=== PATIENT | female | born 1995 | race Caucasian/White ===

== ENCOUNTER → 2020-01-11 | Outpatient (CLI) | payer BC ==
--- NOTE | 2020-01-11 10:27 | KCIC ---
Study: MRI left ankle without contrast INDICATION: Ongoing ankle pain after an injury in July 2019. COMPARISON: Left ankle radiographs 09/02/2019 TECHNIQUE: Multiplanar MR imaging of the left ankle performed without the use of intravenous or intra-articular contrast. FINDINGS: Bones/cartilage: Patchy edema-like signal seen within the distal tibia diametaphysis, medial and lateral malleoli and involving portions of the talus. There may be a tiny fracture fragment off the anterior tibial plafond (image 16 series 6) but this is not well delineated on any additional sequences. No osteochondral defect at the ankle. Ligaments: The distal syndesmotic ligaments are intact. The ATFL is thickened in keeping with prior sprain. The mid aspect of the CFL is slightly wavy in configuration, image 15 series 8, but both its fibular and calcaneal insertions remain visualized. Thickened and heterogeneous PTFL with maintained visualization of intact fibers. The superior peroneal retinaculum is lifted and displaced laterally and appears attached to stripped periosteum from the lateral malleolus creating a pouch containing dislocated peroneal tendons, image 18 series 5. The inferior peroneal retinaculum is intact. Fluid signal undercutting the medial malleolar origin of the deep deltoid ligament, image 17 series 8, compatible with a partial tear. Potential mild superficial deltoid sprain with thickening of the tibiocalcaneal component near the sustentaculum. There is abnormal soft tissue prominence at and above the medial malleolus suggesting injury to the flexor retinaculum but there is no flexor tendon dislocation. The spring ligament is intact. Unremarkable Lisfranc ligament complex. Musculotendinous: As above, anterolateral dislocation of the peroneus longus and brevis. No high-grade peroneal tendon tear but there is a degree of tendinosis particularly involving the peroneus brevis. The PTT, FDL and FHL are intact. Small amount of PTT tendon sheath fluid. The Achilles is intact. The extensor tendons are intact. Sinus Tarsi: Unremarkable. Tarsal tunnel: No mass effect on the neurovascular bundle. Plantar fascia: Unremarkable. Miscellaneous: Localized joint fluid at the anterior aspect of ankle joint with thickened and redundant synovium at this location, such as seen on image 12 series 4. Small amount of fluid as well as edema-like signal at the posterior aspect of ankle joint mainly centered along the PTFL. IMPRESSION: 1. Injury to the superior peroneal retinaculum, favored type 1, with the retinaculum appearing intact but detached from the lateral malleolus with stripped and elevated periosteum. This creates a pouch allowing for anterolateral dislocation of the peroneus brevis and longus tendons. The peroneal tendons are intact and are visualized to their insertions. The inferior peroneal retinaculum is intact. 2. Abnormal soft tissue thickening at and above the medial malleolus suggesting flexor retinaculum injury but without flexor tendon dislocation or complete retinacular disruption. 3. Sequela of prior injury to the ATFL, CFL and PTFL but without full-thickness ligament disruption. Partial tear at the medial malleolar attachment of the deep deltoid ligament (image 17 series 8). 4. Localized fluid at the anterior ankle joint with intermixed redundant and thickened synovium which can be seen with anterior ankle impingement. Also noted is a possible tiny fracture fragment off the anterior tibial plafond (image 16 series 6) but only seen on one sequence. Consider follow-up radiographs to better evaluate. 5. Patchy marrow edema at the distal tibia, medial and lateral malleoli and talus could be from disuse, related to prior injury or in part from ankle instability. Electronically signed by: MORAIMA SMITH MD (01/11/2020 10:24 AM) [id number]
== END | disposition home or self-care (01) ==
LOC: KCIC MRI 07:58
PROVIDERS: ATTEND Orthopaedic Surgery Sports Medicine
DX: S93.402A Sprain of unspecified ligament of left ankle, initial encounter (principal); X58.XXXA Exposure to other specified factors, initial encounter; Y93.89 Activity, other specified; Y92.89 Other specified places as the place of occurrence of the external cause; Y99.8 Other external cause status
CPT/HCPCS: 73721